=== PATIENT | female | born 1980 | race Caucasian/White ===

== ENCOUNTER 2017-02-09 18:30 | Emergency (ER) | payer OTHER ==
[~2017-02-09] VITALS: Ht 157.5 cm; Wt 65.8 kg
[2017-02-09 19:53] LABS: URINE BILIRUBIN NEGATIVE (Negative); URINE BLOOD 1+ (Negative); URINE COLOR YELLOW; URINE GLUCOSE-RANDOM* NEGATIVE (Negative); URINE KETONES NEGATIVE (Negative); URINE LEUKOCYTES-REFLEX 3+ (Negative); URINE PROTEIN (DIPSTICK) NEGATIVE (Negative); URINE UROBILINOGEN 0.2 E.U./dl (0.2-1.0)
[2017-02-09 20:10] LABS: CASTS None Seen /LPF (None Seen); CRYSTALS None Seen /LPF (None Seen); SQUAMOUS 4-10 Moderate /LPF (0-3)
[2017-02-09 20:11] LABS: URINE RBC 0-2 Rare /HPF (0-2); URINE WBC-REFLEX >25 Many /HPF (0-5)
[2017-02-09 20:30] LABS: ABSOLUTE NEUTROPHILS 7.4 thou/uL (1.4-8.2); BASOPHILS 0.4 % (0.0-2.0); EOSINOPHILS 0.5 % (0.0-3.0); HEMOGLOBIN 12.4 gm/dL (12.0-15.0); LYMPHOCYTES 13.2 % (24.0-44.0); MCH 28.6 pg (26.0-34.0); MCHC 34.3 g/dL (28.0-37.0); MCV 83.5 fL (80.0-100.0); MONOCYTES 8.6 % (1.0-8.0); PLATELET COUNT 177 thou/uL (150-400); POLYS 77.3 % (36.0-66.0); RBC 4.31 mil/uL (4.20-5.00); RDW 14.9 % (10.5-14.5); WBC 9.5 thou/uL (4.0-11.0)
[2017-02-09 20:32] LABS: MANUAL DIFF NO
[2017-02-09 20:43] LABS: CALCIUM 8.9 mg/dL (8.5-10.1); CREATININE 0.8 mg/dL (0.6-1.0); POTASSIUM 3.7 mmol/L (3.5-5.1)
[2017-02-09 20:47] LABS: ALBUMIN 3.7 g/dL (3.4-5.0); DIRECT BILIRUBIN 0.1 mg/dL (<0.1-0.3); TOTAL BILIRUBIN 0.3 mg/dL (<0.1-1.0); TOTAL PROTEIN 7.4 g/dL (6.4-8.2)
[2017-02-09] MEDS ORDERED: NORCO 5-325 TA1 EACH PO (20:54)
[2017-02-09] MEDS ORDERED: MACROBID 100 M100 M1 PO (20:54)
[2017-02-09] MEDS ORDERED: XANAX 0.25 MG0.25 MG (21:16)
[2017-02-09] MEDS ORDERED: LEXAPRO 10 MG T10 M1 PO (21:16)
[2017-02-09] MEDS ORDERED: DIPHENHIST50 MG (21:16)
[2017-02-09] MEDS ORDERED: WELLBUTRIN SR150 M1 (21:16)
[2017-02-09 21:55] VITALS: BP 102/53
== END 2017-02-09 22:02 | disposition home or self-care (01) ==
LOC: ER 18:30
PROVIDERS: Emergency Medicine; Physician Assistant
DX: N12 Tubulo-interstitial nephritis, not specified as acute or chronic (principal)

== ENCOUNTER 2019-09-01 19:09 | Emergency (ER) | payer OTHER ==
[~2019-09-01] VITALS: Ht 157.5 cm; Wt 61.2 kg
[~2019-09-01 19:09] MED LIST: DIPHENHIST50 MG; LEXAPRO 10 MG T10 M1 PO; MACROBID 100 M100 M1 PO; NORCO 5-325 TA1 EACH PO; WELLBUTRIN SR150 M1; XANAX 0.25 MG0.25 MG
[2019-09-01] MEDS ORDERED: NAPROSYN500 MG PO (20:11)
[2019-09-01 20:15] VITALS: BP 124/84
== END 2019-09-01 20:18 | disposition home or self-care (01) ==
LOC: ER 19:09
DX: S93.491A Sprain of other ligament of right ankle, initial encounter (principal); F90.9 Attention-deficit hyperactivity disorder, unspecified type; F41.9 Anxiety disorder, unspecified; W18.39XA Other fall on same level, initial encounter; Y92.89 Other specified places as the place of occurrence of the external cause; Y93.89 Activity, other specified; Y99.0 Civilian activity done for income or pay

== ENCOUNTER → 2020-03-22 | Outpatient (CLI) | payer OTHER ==
[~2020-03-22] MED LIST changes: +NAPROSYN500 MG PO
== END ==
LOC: LABMALL 13:36
PROVIDERS: ATTEND Family Medicine
DX: Z01.84 Encounter for antibody response examination (principal); I10 Essential (primary) hypertension

== ENCOUNTER → 2020-04-01 | Outpatient (CLI) | payer OTHER | LOC: LABMALL 12:51 | PROVIDERS: ATTEND Family Medicine | DX: Z00.00 Encounter for general adult medical examination without abnormal findings (principal) ==

== ENCOUNTER → 2020-09-24 | Outpatient (CLI) | payer OTHER | LOC: LAB 08:20 | PROVIDERS: ATTEND Family Medicine | DX: Z00.00 Encounter for general adult medical examination without abnormal findings (principal) ==

== ENCOUNTER 2021-02-09 21:18 | Emergency (ER) | payer OTHER ==
[~2021-02-09] VITALS: Ht 157.5 cm; Wt 68.0 kg
[2021-02-09] MEDS ORDERED: ADDERALL XR 2020 MG PO (21:45)
[2021-02-09] MEDS ORDERED: ADDERALL 10 MG10 MG PO (21:45)
[2021-02-09] MEDS ORDERED: CLARITIN10 M3 PO (21:46)
[2021-02-09] MEDS ORDERED: PRILOSEC OTC20 MG PO (21:46)
[2021-02-10] MEDS ORDERED: IMITREX 50 MG T50 MG PO (01:01)
[2021-02-10 01:15] VITALS: BP 129/81
== END 2021-02-10 01:16 | disposition home or self-care (01) ==
LOC: ER 21:18
DX: G43.009 Migraine without aura, not intractable, without status migrainosus (principal); R11.10 Vomiting, unspecified; Z79.899 Other long term (current) drug therapy; Z98.51 Tubal ligation status

== ENCOUNTER → 2021-02-24 | Outpatient (CLI) | payer OTHER ==
[~2021-02-24] VITALS: Ht 157.5 cm; Wt 70.3 kg
[~2021-02-24] MED LIST changes: +ADDERALL 10 MG10 MG PO; +ADDERALL XR 2020 MG PO; +CLARITIN10 M3 PO; +IMITREX 50 MG T50 MG PO; +MULTI VITAMIN1 EACH PO; +PRILOSEC OTC20 MG PO; -WELLBUTRIN SR150 M1; +WELLBUTRIN SR150 M1 PO
--- NOTE | 2021-02-27 17:07 | PATH ---
[facility] [address] [place] [address] PATHOLOGY RPT PROCEDURE Name: JACY COLLINS [facility] [id number] Admission: 02/24/21 Date of : 84 Discharge: Report #: [id number] Path Case #: [id number] [facility] Accession Number: [id number] . 01 Material submitted: . PART A: small bowel - SMALL BOWEL BIOPSY PART B: gastrointestinal site - RANDOM GASTRIC. Modifiers: RANDOM . 01 Clinical history: . EGD ABDOMINAL BLOATING GERD;BURPING . 02 Diagnosis: A. Small bowel mucosa, small bowel, endoscopic biopsy: - No diagnostic abnormalities present. - Negative for villous blunting or increase in intraepithelial lymphocytes. . B. Gastric mucosa, random gastric rule out H. pylori, endoscopic biopsy: - Mild reactive gastropathy. - Negative for intestinal metaplasia or atrophy. - Negative for Helicobacter pylori (properly controlled immunohistochemical stain performed). (IUV/db; 02/27/2021) LBQ 02/27/2021 1542 Local . 02 Electronically signed: . Kajal Sims MD, Pathologist NPI- [id number] . 01 Gross description: . A. Received in formalin labeled "Julia Collinsherine, small bowel biopsy" are multiple wong-brown soft tissue fragments measuring in aggregate 0.5 x 0.4 x 0.1 cm. The specimen is submitted entirely in A1. . B. Received in formalin labeled "Karina, Jacy, random gastric " are multiple wong-brown soft tissue fragments measuring in aggregate 0.6 x 0.5 x 0.1 cm. The specimen is submitted entirely in B1. (CULLEN; 02/26/2021) CULLEN/CULLEN 02/26/2021 1832 Local . 02 Pathologist provided ICD-10: K31.9, R14.0, K21.00 . 02 CPT . 046719, 053092, [id number] Specimen Comment: A courtesy copy of this report has been sent to [phone], [place] [id number] PATHOLOGY RPT PROCEDURE Name: JACY COLLINS Room #: REG UBALDO Chamorro#: [id number] Admission: 02/24/21 Date of : 84 Discharge: Report #: [id number] Path Case #: [id number] Specimen Comment: [id number] Specimen Comment: Report sent to / DR MISHRA Performed at: [address] [facility], [place], [place] [id number] MD Hugh Pérez MD Phone: [phone] Performed at: [address] [id number] MD Kajal Sims MD Phone: [phone]
== END | disposition home or self-care (01) ==
LOC: GI 06:11
PROVIDERS: ATTEND Internal Medicine Gastroenterology
DX: R14.2 Eructation (principal); K31.9 Disease of stomach and duodenum, unspecified; G43.909 Migraine, unspecified, not intractable, without status migrainosus; K21.9 Gastro-esophageal reflux disease without esophagitis; F32.9 Major depressive disorder, single episode, unspecified; F41.9 Anxiety disorder, unspecified; F17.210 Nicotine dependence, cigarettes, uncomplicated; Z98.890 Other specified postprocedural states; Z79.899 Other long term (current) drug therapy; Z98.51 Tubal ligation status; Z20.822 Contact with and (suspected) exposure to COVID-19
CPT/HCPCS: 62110; 62900